=== PATIENT | male | born 1940 | race Caucasian/White ===

== ENCOUNTER 2020-07-26 01:53 | Inpatient (IN) | payer MEDICARE, BC ==
[~2020-07-26] VITALS: Ht 177.8 cm; Wt 99.8 kg
[~2020-07-26 01:53] MED LIST: ACTOS30 MG PO; AMARYL4 MG PO; ASPIRIN81 MG PO; AVALIDE 300-121 EACH PO; AZITHROMYCIN250 MG PO; BENICAR HCT 201 EACH PO; CRESTOR10 MG PO; KEFLEX500 MG PO; LEVAQUIN750 MG PO; LEVEMIR100 UNIT/1 SQ; METFORMIN HCL1000 MG PO; PANTOPRAZOLE SO40 MG PO; SIMVASTATIN20 MG PO; ULTRACET TABLE1 EACH PO; VITAMIN D PO
[2020-07-26] MEDS ORDERED: ASPIRIN 81 MG CHEW TAB PO ONE ×2 (02:00→03:45)
[2020-07-26] MEDS ORDERED: DEXTROSE 5% 1,000 ML IV ONE (02:00)
[2020-07-26] MEDS ORDERED: DEXTROSE 50% SYRINGE 50 ML IV ONE ×2 (02:05→03:59)
[2020-07-26 02:09] LABS: BASOPHILS % 0.4 % (0.0-1.0); EOSINOPHILS # (AUTO) 0.1 (0.0-0.4); EOSINOPHILS % 1.2 % (0.0-6.0); HEMATOCRIT 37.8 % (38.2-49.6); HEMOGLOBIN 12.5 g/dL (14.0-18.0); LYMPHOCYTES # (AUTO) 1.8 (1.0-3.2); LYMPHOCYTES % 19.3 % (18.0-39.1); MEAN CORPUSCULAR HEMOGLOBIN 28.5 pg (28-32); MEAN CORPUSCULAR HGB CONC 33.1 g/dL (31-35); MEAN CORPUSCULAR VOLUME 86.1 fL (81-99); MONOCYTES # (AUTO) 0.6 (0.2-0.8); MONOCYTES % 6.7 % (4.4-11.3); NEUTROPHILS # (AUTO) 6.6 (2.1-6.9); PLATELET COUNT 223 x10e3/uL (140-360); RED BLOOD COUNT 4.39 x10e6/uL (4.3-5.7); RED CELL DISTRIBUTION WIDTH 14.1 % (11.7-14.4)
[2020-07-26 02:29] LABS: ALBUMIN/GLOBULIN RATIO 1.5 (0.8-2.0); ANION GAP 16.6 mmol/L (8-16); CALCIUM 8.9 mg/dL (8.4-10.2); CREATININE, SERUM 1.49 mg/dL (0.72-1.25); POTASSIUM 3.6 mmol/L (3.5-5.1)
[2020-07-26 02:35] LABS: CREATINE KINASE MB 4.4 ng/mL (0-5.0)
[2020-07-26] MEDS ORDERED: DEXTROSE 10% 1,000 ML IV SCH (03:45)
[2020-07-26] MEDS ORDERED: DEXTROSE 50% SYRINGE 50 ML IV PRN (03:45)
[2020-07-26] MEDS ORDERED: DEXTROSE 10% 1,000 ML IV ONE (03:59)
[2020-07-26 12:07] LABS: CREATINE KINASE MB 4.5 ng/mL (0-5.0)
== END 2020-07-26 14:42 | disposition home or self-care (01) | DRG 637 ==
LOC: ER 01:59 → ERHOLD 03:56
PROVIDERS: ADMIT Internal Medicine; ATTEND Internal Medicine
DX: E11.649 Type 2 diabetes mellitus with hypoglycemia without coma (principal); G93.41 Metabolic encephalopathy; E78.5 Hyperlipidemia, unspecified; M10.9 Gout, unspecified; E11.22 Type 2 diabetes mellitus with diabetic chronic kidney disease; I13.10 Hypertensive heart and chronic kidney disease without heart failure, with stage 1 through stage 4 chronic kidney disease, or unspecified chronic kidney disease; N18.30 Chronic kidney disease, stage 3 unspecified; F03.90 Unspecified dementia, unspecified severity, without behavioral disturbance, psychotic disturbance, mood disturbance, and anxiety; Z20.822 Contact with and (suspected) exposure to COVID-19; Z79.4 Long term (current) use of insulin; R41.82 Altered mental status, unspecified
CPT/HCPCS: 36415; 70450; 71045; 80053; 82550; 82553; 82948; 83690; 84484; 85025; 93005; 99285; J7070; J7799; U0002